=== PATIENT | male | born 1930 | race Caucasian/White ===

== ENCOUNTER 2018-03-25 03:52 | Emergency (ER) | payer MEDICARE, OTHER ==
--- NOTE | 2018-03-25 04:37 | EDM.PDOC ---
ED HPI GENERAL MEDICAL PROBLEM - General Chief Complaint: Neurological Problem Stated Complaint: dizziness Time Seen by Provider: 03/25/18 04:34 - History of Present Illness INITIAL COMMENTS - FREE TEXT/NARRATIVE: Tucker is an 87 year old male with PMH of CAD, hypertension, hyperlipidemia, type II DM, who presents to the ED with c/o dizziness described as spinning sensation. He reports that yesterday evening around 10 pm he noticed he was off balance due to spinning. He reports he then woke up at 2 am and was spinning so bad he could hardly walk. He reports he almost fell over. He then reports at 4 am he was unable to get OOB due to the dizziness, so he called EMS. He denies any history of vertigo or similiar issues. He denies any neurological deficit. He is alert and oriented. He reports when he is sitting up he feels better. He reports that when he lies down, the dizziness returns. He denies any symptoms outside of the vertigo. He denies any recent URI or illness. Denies any CP, SOB , fever, chills, tinnitis, N/V/D. Does report that he has been seeing Dr. Holcomb (Chiropractor) for cervical osteoarthritis. He does report cervical manipulation 6-7 times over the last few months. 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: Reports: EKG - Related Data Allergies Allergy/AdvReac Type Severity Reaction Status Date / Time No Known Allergies Allergy Verified 03/25/18 04:36 Home Meds: Home Meds Levothyroxine [Synthroid] 50 mcg PO ACBRK 09/07/14 [History] Omeprazole [Prilosec] 20 mg PO DAILY 09/07/14 [History] Aspirin [Ecotrin] 325 mg PO WITHBREAKFAST #30 tab.ec 06/20/15 [Rx] Lisinopril [Prinivil] 10 mg PO DAILY #30 tablet 06/20/15 [Rx] Magnesium 500 mg PO DAILY 12/19/15 [History] Insulin NPH Hum/Reg Insulin Hm [Novolin 70-30 100 Unit/ml Vial] 60 units SQ BID 04/26/16 [History] Metoprolol Tartrate [Lopressor] 50 mg PO BID 04/26/16 [History] Adalimumab [Humira] 40 mg SQ ASDIRECTED 03/25/18 [History] Meclizine [Antivert] 25 mg PO Q6H PRN #30 tab 03/25/18 [Rx] Past Medical History HEENT History: Reports: Hard of Hearing, Impaired Vision Cardiovascular History: Reports: Heart Failure, High Cholesterol, Hypertension, [place] Respiratory History: Reports: Other (See Below) Other Respiratory History: bronchiolitis Gastrointestinal History: Reports: GERD Genitourinary History: Reports: Other (See Below) Other Genitourinary History: nocturia Musculoskeletal History: Reports: Arthritis, Gout, Other (See Below) Other Musculoskeletal History: lumbar spinal stenosis Neurological History: Reports: Other (See Below) Other Neuro History: paresthesia Psychiatric History: Reports: Depression Endocrine/Metabolic History: Reports: Diabetes, Type II, Hypothyroidism Dermatologic History: Reports: Psoriasis Other Dermatologic History: actinic keratosis - Past Surgical History Cardiovascular Surgical History: Reports: Coronary Artery Bypass GI Surgical History: Reports: Colonoscopy Social & Family History - Tobacco Use Smoking Status *Q: Never Smoker - Caffeine Use Caffeine Use: Reports: Coffee - Recreational Drug Use Recreational Drug Use: No ED ROS GENERAL - Review of Systems Review Of Systems: ROS reveals no pertinent complaints other than HPI. ED EXAM, NEURO - Physical Exam Exam: See Below Exam Limited By: No Limitations General Appearance: Alert, WD/WN, No Apparent Distress Eye Exam: Bilateral Eye: EOMI, Normal Fundi, Normal Inspection, PERRL Ears: Normal External Exam, Normal Canal, Hearing Grossly Normal, Normal TMs Nose: Normal Inspection, Normal Mucosa, No Blood Throat/Mouth: Normal Inspection, Normal Lips, Normal Teeth, Normal Gums, Normal Oropharynx, Normal Voice, No Airway Compromise Head Exam: Atraumatic, Normocephalic Neck: Normal Inspection, Supple, Non-Tender, Full Range of Motion Respiratory/Chest: No Respiratory Distress, Lungs Clear, Normal Breath Sounds, No Accessory Muscle Use, Chest Non-Tender Cardiovascular: Normal Peripheral Pulses, Regular Rate, Rhythm, No Edema, No Gallop, No JVD, No Murmur, No Rub GI/Abdominal: Normal Bowel Sounds, Soft, Non-Tender, No Organomegaly, No Distention, No Abnormal Bruit, No Mass Neurological: Alert, Normal Mood/Affect, Normal Dorsiflexion, CN II-XII Intact, Normal Plantar Flexion, Normal Gait, Normal Reflexes, No Motor/Sensory Deficits , Oriented x 3 Back Exam: Normal Inspection, Full Range of Motion, NT Extremities: Normal Inspection, Normal Range of Motion, Non-Tender, No Pedal Edema, Normal Capillary Refill Psychiatric: Normal Affect, Normal Mood Skin Exam: Warm, Dry, Intact, Normal Color, No Rash EKG INTERPRETATION Rhythm: NSR QRS: RBBB Course - Vital Signs Last Recorded V/S: Last Vital Signs Temp 97.4 F 03/25/18 08:00 Pulse 72 03/25/18 08:00 Resp 20 03/25/18 08:00 BP 155/68 H 03/25/18 08:00 Pulse Ox 95 03/25/18 08:00 - Orders/Labs/Meds Labs: Laboratory Tests 03/25/18 03/25/18 03/25/18 Range/Units 04:04 04:04 04:21 WBC 8.2 (5.0-10.0) 10^3/uL RBC 5.58 (4.50-6.00) 10^6/uL Hgb 15.9 (14.0-18.0) g/dL Hct 50.1 (40.0-54.0) % MCV 89.8 (82.0-94.0) fL MCH 28.5 (27.0-32.0) pg MCHC 31.7 L (33.0-38.0) g/dL RDW Coeff of Mate[place] 13.7 (11.0-15.0) % Plt Count 163 (150-400) 10^3/uL Neut % (Auto) 67.7 (35-85) % Lymph % (Auto) 18.9 (10-55) % [place] % (Auto) 10.3 (0-16) % Eos % (Auto) 2.9 (0-5) % Baso % (Auto) 0.2 (0-3) % Neut # (Auto) 5.53 (1.80-7.00) 10^3/uL Lymph # (Auto) 1.55 (1.00-4.80) 10^3/uL [place] # (Auto) 0.84 H (0.00-0.80) 10^3/uL Eos # (Auto) 0.24 (0.00-0.45) 10^3/uL Baso # (Auto) 0.02 10^3/uL Sodium 135 L (136-145) mEq/L Potassium 4.2 (3.5-5.0) mEq/L Chloride 101 (98-106) mEq/L Carbon Dioxide 35 H (21-32) mmol/L BUN 31 H (7-18) mg/dL Creatinine 1.3 (0.7-1.3) mg/dL Est Cr Clr Drug Dosing 38.73 mL/min Estimated GFR (MDRD) 52 L (>=60) mL/min Glucose 137 H (75-99) mg/dL Calcium 9.0 (8.4-10.1) mg/dL Creatine Kinase 156 (35-232) U/L Troponin I < 0.017 (0.00-0.06) ng/mL C-Reactive Protein 0.8 (0.2-0.8) mg/dL Urine Color Yellow (YELLOW) Urine Appearance Clear (CLEAR) Urine pH 5.5 (4.5-8.0) Ur Specific [place] 1.020 (1.003-1.020) Urine Protein 30 H (NEGATIVE) mg/dL Urine Glucose (UA) Negative (NEGATIVE) mg/dL Urine Ketones Negative (NEGATIVE) mg/dL Urine Occult Blood Trace-lysed H (NEGATIVE) Urine Nitrite Negative (NEGATIVE) Urine Bilirubin Negative (NEGATIVE) Urine Urobilinogen 0.2 (0.2-1.0) EU/dL Ur Leukocyte Esterase Negative (NEGATIVE) Urine RBC Not seen (0-5) /HPF Urine WBC Not seen (0-5) /HPF Meds: Medications Discontinued Medications Generic Name Dose Route Start Last Admin Trade Name Freq PRN Reason Stop Dose Admin Meclizine HCl 25 mg 03/25/18 04:44 03/25/18 04:45 Antivert PO 03/25/18 04:45 25 mg ONETIME ONE Administration - Re-Assessments/Exams Free Text/Narrative Re-Assessment/Exam: 03/25/18 05:01 Discussed exam and laboratory findings with patient and son. Labs all stable. Exam indicates BPPV. We will keep him in extended ED and reexamine in am. 03/25/18 10:00 Patient reports he is feeling much better. He reports he was able to lie down without any dizziness. He is up ambulatory and is steady on feet. He does report he has a walker at home if needed. He feels he is stable for discharge. Departure - Departure Time of Disposition: 10:03 Disposition: Home, Self-Care 01 Condition: Good Clinical Impression: BPPV (benign paroxysmal positional vertigo) Qualifiers: Laterality: unspecified laterality Qualified Code(s): H81.10 - Benign paroxysmal vertigo, unspecified ear - Discharge Information *PRESCRIPTION DRUG MONITORING PROGRAM REVIEWED*: Not Applicable *COPY OF PRESCRIPTION DRUG MONITORING REPORT IN PATIENT ANA: Not Applicable Prescriptions: Meclizine [Antivert] 25 mg PO Q6H PRN #30 tab PRN Reason: Dizziness Instructions: Benign Positional Vertigo Referrals: Kusum Pierson CHIEF EMBALMER [Emergency Provider] - Forms: ED Department Discharge Additional Instructions: 1) Meclizine every 6 hours as needed for dizziness 2) Push fluids 3) Avoid sudden neck movements and position changes 4) No driving while dizzy/unsteady 5) Use walker as needed for unsteadiness 6) Follow up with PT on Tuesday. Appointment will need to be scheduled Tuesday. Bring referral form. 7) Follow up with Kusum Pierson DNP TuesdayMarch 29 at 10:30 am for ER follow up
[2018-03-25] MEDS ORDERED: Meclizine 12.5 MG Tab PO ONE (04:44)
[2018-03-25 04:49] LABS: CHLORIDE,CL 101 mEq/L (98-106); SODIUM,NA 135 mEq/L (136-145)
[2018-03-25 09:01] VITALS: BP 155/68
== END 2018-03-25 10:20 | disposition home or self-care (01) ==
LOC: CC.ED 03:52
DX: H81.10 Benign paroxysmal vertigo, unspecified ear (principal); I11.0 Hypertensive heart disease with heart failure; I50.9 Heart failure, unspecified; I25.2 Old myocardial infarction; K21.9 Gastro-esophageal reflux disease without esophagitis; E03.9 Hypothyroidism, unspecified; E11.9 Type 2 diabetes mellitus without complications; Z79.899 Other long term (current) drug therapy; Z79.82 Long term (current) use of aspirin
CPT/HCPCS: 36415; 80048; 81001; 82550; 84484; 85025; 86140; 93005; 99284; A9270-GY

== ENCOUNTER 2019-09-14 17:33 | Inpatient (IN) | payer MEDICARE, OTHER ==
[2019-09-14 18:16] LABS: CHLORIDE,CL 99 mEq/L (98-106); SODIUM,NA 137 mEq/L (136-145)
[2019-09-14] MEDS ORDERED: Iopamidol 755 Mg/ML 100 ML Bottle IVPUSH ONE (18:52)
[2019-09-14] MEDS ORDERED: Sodium Chloride 0.9% 500 ML IV ONE ×2 (19:38→19:45)
[2019-09-14] MEDS ORDERED: Sodium Chloride 0.9% 500 ML ONE (19:45)
[2019-09-14] MEDS ORDERED: metroNIDAZOLE/Normal Saline 500 MG in Premix Bag 1 BAG IV SCH (22:00)
[2019-09-14] MEDS ORDERED: Acetaminophen 325 MG Tab PO PRN (22:10)
[2019-09-14] MEDS ORDERED: Morphine 2 MG/ML Syringe IVPUSH PRN (22:10)
[2019-09-14] MEDS ORDERED: Ondansetron 4 MG/2 ML SDV IV PRN (22:10)
[2019-09-14] MEDS ORDERED: Insulin NPH HUM/REG Insulin HM 100 UNIT/ML 3 ML Vial SQ PRN (22:10)
[2019-09-14] MEDS ORDERED: Ibuprofen 200 MG Tab PO PRN (22:10)
[2019-09-14] MEDS: Enoxaparin 40 MG/0.4 ML Syringe SUBCUT SCH (22:33)
[2019-09-14] MEDS: Levofloxacin/Dextrose 5%-Water 750 MG in Premix Bag 1 BAG IV SCH (23:19)
[2019-09-15] MEDS: Levothyroxine 50 MCG Tab PO SCH (06:15)
[2019-09-15] MEDS: Pantoprazole 40 MG Tab.CR PO SCH (06:15)
[2019-09-15] MEDS: metroNIDAZOLE/Normal Saline 500 MG in Premix Bag 1 BAG IV SCH ×3 (07:29→23:54)
[2019-09-15] MEDS: Lisinopril 20 MG Tab PO SCH (07:30)
[2019-09-15] MEDS: Allopurinol 100 MG Tab PO SCH (07:30)
[2019-09-15] MEDS: Aspirin 81 MG Tab.EC PO SCH (07:30)
[2019-09-15] MEDS: Metoprolol Tartrate 50 MG Tab PO SCH ×2 (07:31→20:00)
[2019-09-15 07:57] LABS: CHLORIDE,CL 101 mEq/L (98-106); SODIUM,NA 138 mEq/L (136-145)
--- NOTE | 2019-09-15 16:04 | PCM.PN ---
- General Info Date of Service: 09/15/19 Functional Status: Reports: Pain Controlled, Tolerating Diet (clear liquids), Ambulating - Review of Systems General: Reports: No Symptoms. Denies: Fever HEENT: Reports: No Symptoms Pulmonary: Reports: No Symptoms Cardiovascular: Reports: No Symptoms Gastrointestinal: Reports: Abdominal Pain (mildly improved since yesterday), Nausea. Denies: Vomiting Genitourinary: Reports: No Symptoms Musculoskeletal: Reports: No Symptoms Skin: Reports: No Symptoms Neurological: Reports: No Symptoms Psychiatric: Reports: No Symptoms - Patient Data Vitals - Most Recent: Last Vital Signs Temp 98.8 F 09/15/19 12:00 Pulse 74 09/15/19 12:00 Resp 20 09/15/19 12:00 BP 124/64 09/15/19 12:00 Pulse Ox 95 09/15/19 12:00 Weight - Most Recent: 197 lb I&O - Last 24 Hours: Intake & Output 09/15/19 09/15/19 09/15/19 06:59 14:59 22:59 Intake Total 100 Balance 100 Lab Results Last 24 Hours: Laboratory Results - last 24 hr 09/14/19 09/14/19 09/14/19 Range/Units 17:49 17:49 17:49 WBC 12.5 H (5.0-10.0) 10^3/uL RBC 5.27 (4.50-6.00) 10^6/uL Hgb 15.1 (14.0-18.0) g/dL Hct 47.2 (40.0-54.0) % MCV 89.6 (82.0-94.0) fL MCH 28.7 (27.0-32.0) pg MCHC 32.0 L (33.0-38.0) g/dL RDW Coeff of Mateo 13.4 (11.0-15.0) % Plt Count 198 (150-400) 10^3/uL Neut % (Auto) 78.7 (35-85) % Lymph % (Auto) 10.7 (10-55) % [place] % (Auto) 8.6 (0-16) % Eos % (Auto) 1.8 (0-5) % Baso % (Auto) 0.2 (0-3) % Neut # (Auto) 9.86 H (1.80-7.00) 10^3/uL Lymph # (Auto) 1.34 (1.00-4.80) 10^3/uL [place] # (Auto) 1.08 H (0.00-0.80) 10^3/uL Eos # (Auto) 0.22 (0.00-0.45) 10^3/uL Baso # (Auto) 0.02 10^3/uL Sodium 137 (136-145) mEq/L Potassium 4.8 (3.5-5.0) mEq/L Chloride 99 (98-106) mEq/L Carbon Dioxide 31 (21-32) mmol/L BUN 23 H (7-18) mg/dL Creatinine 1.0 (0.7-1.3) mg/dL Est Cr Clr Drug Dosing TNP Estimated GFR (MDRD) > 60 (>=60) mL/min Glucose 171 H D (75-99) mg/dL Calcium 9.6 (8.4-10.1) mg/dL Total Bilirubin 0.4 (0.0-1.0) mg/dL AST 21 (15-37) U/L ALT 20 (12-78) U/L Alkaline Phosphatase 92 (46-116) U/L C-Reactive Protein (0.2-0.8) mg/dL Total Protein 7.7 (6.4-8.2) g/dL Albumin 3.4 (3.4-5.0) g/dL Amylase 22 L (25-115) U/L Lipase 91 (73-393) U/L Urine Color Yellow (YELLOW) Urine Appearance Clear (CLEAR) Urine pH 5.5 (4.5-8.0) Ur Specific [place] 1.020 (1.003-1.020) Urine Protein 30 H (NEGATIVE) mg/dL Urine Glucose (UA) Negative (NEGATIVE) mg/dL Urine Ketones Negative (NEGATIVE) mg/dL Urine Occult Blood Trace-lysed H (NEGATIVE) Urine Nitrite Negative (NEGATIVE) Urine Bilirubin Negative (NEGATIVE) Urine Urobilinogen 1.0 (0.2-1.0) EU/dL Ur Leukocyte Esterase Negative (NEGATIVE) Urine RBC 0-5 (0-5) /HPF Urine WBC Not seen (0-5) /HPF Ur Squamous Epith Cells Not seen (NOT SEEN) /HPF Urine Bacteria Not seen (NOT SEEN) /HPF Hyaline Casts Rare (NOT SEEN) /LPF Urine Mucus Not seen (NOT SEEN) /HPF 09/15/19 09/15/19 Range/Units 07:20 07:20 WBC 7.7 (5.0-10.0) 10^3/uL RBC 4.87 (4.50-6.00) 10^6/uL Hgb 13.9 L (14.0-18.0) g/dL Hct 43.4 (40.0-54.0) % MCV 89.1 (82.0-94.0) fL MCH 28.5 (27.0-32.0) pg MCHC 32.0 L (33.0-38.0) g/dL RDW Coeff of Mateo 13.5 (11.0-15.0) % Plt Count 176 (150-400) 10^3/uL Neut % (Auto) 74.3 (35-85) % Lymph % (Auto) 12.1 (10-55) % [place] % (Auto) 10.8 (0-16) % Eos % (Auto) 2.7 (0-5) % Baso % (Auto) 0.1 (0-3) % Neut # (Auto) 5.73 (1.80-7.00) 10^3/uL Lymph # (Auto) 0.93 L (1.00-4.80) 10^3/uL [place] # (Auto) 0.83 H (0.00-0.80) 10^3/uL Eos # (Auto) 0.21 (0.00-0.45) 10^3/uL Baso # (Auto) 0.01 10^3/uL Sodium 138 (136-145) mEq/L Potassium 4.3 (3.5-5.0) mEq/L Chloride 101 (98-106) mEq/L Carbon Dioxide 29 (21-32) mmol/L BUN 16 (7-18) mg/dL Creatinine 0.9 (0.7-1.3) mg/dL Est Cr Clr Drug Dosing 52.02 Estimated GFR (MDRD) > 60 (>=60) mL/min Glucose 131 H (75-99) mg/dL Calcium 8.9 (8.4-10.1) mg/dL Total Bilirubin (0.0-1.0) mg/dL AST (15-37) U/L ALT (12-78) U/L Alkaline Phosphatase (46-116) U/L C-Reactive Protein 5.7 H (0.2-0.8) mg/dL Total Protein (6.4-8.2) g/dL Albumin (3.4-5.0) g/dL Amylase (25-115) U/L Lipase (73-393) U/L Urine Color (YELLOW) Urine Appearance (CLEAR) Urine pH (4.5-8.0) Ur Specific [place] (1.003-1.020) Urine Protein (NEGATIVE) mg/dL Urine Glucose (UA) (NEGATIVE) mg/dL Urine Ketones (NEGATIVE) mg/dL Urine Occult Blood (NEGATIVE) Urine Nitrite (NEGATIVE) Urine Bilirubin (NEGATIVE) Urine Urobilinogen (0.2-1.0) EU/dL Ur Leukocyte Esterase (NEGATIVE) Urine RBC (0-5) /HPF Urine WBC (0-5) /HPF Ur Squamous Epith Cells (NOT SEEN) /HPF Urine Bacteria (NOT SEEN) /HPF Hyaline Casts (NOT SEEN) /LPF Urine Mucus (NOT SEEN) /HPF Med Orders - Current: Current Medications Acetaminophen (Tylenol) 650 mg PO Q4H PRN PRN Reason: Pain (Mild 1-3)/fever Allopurinol (Zyloprim) 100 mg PO DAILY [facility] Last Admin: 09/15/19 07:30 Dose: 100 mg Aspirin (Halfprin) 81 mg PO DAILY [facility] Last Admin: 09/15/19 07:30 Dose: 81 mg Enoxaparin Sodium (Lovenox) 40 mg SUBCUT Q24H [facility] Last Admin: 09/14/19 22:33 Dose: 40 mg Levofloxacin/Dextrose 750 mg/ (Premix) 150 mls @ 100 mls/hr IV Q24H [facility] Last Admin: 09/14/19 23:19 Dose: 100 mls/hr Metronidazole 500 mg/ Premix 100 mls @ 100 mls/hr IV Q8H [facility] Last Admin: 09/15/19 15:47 Dose: 100 mls/hr Ibuprofen (Motrin) 600 mg PO Q6H PRN PRN Reason: Pain (mild 1-3) Insulin NPH Beef/Pork (Humulin 70-30) 8 - 20 unit SQ BID PRN PRN Reason: Blood Glucose Levothyroxine Sodium (Synthroid) 50 mcg PO ACBRK [facility] Last Admin: 09/15/19 06:15 Dose: 50 mcg Lisinopril (Prinivil) 20 mg PO DAILY [facility] Last Admin: 09/15/19 07:30 Dose: 20 mg Metoprolol Tartrate (Lopressor) 50 mg PO BID [facility] Last Admin: 09/15/19 07:31 Dose: 50 mg Morphine Sulfate (Morphine) 2 mg IVPUSH Q2H PRN PRN Reason: Pain (severe 7-10) Ondansetron HCl (Zofran) 4 mg IV Q6H PRN PRN Reason: Nausea/Vomiting Pantoprazole Sodium (Protonix) 40 mg PO ACBREAKFAST [facility] Last Admin: 09/15/19 06:15 Dose: 40 mg Discontinued Medications Sodium Chloride (Normal Saline) Confirm Administered Dose 500 mls @ as directed .ROUTE .STK-MED ONE Stop: 09/14/19 19:46 Last Admin: 09/14/19 20:02 Dose: Not Given Metronidazole 500 mg/ Premix 100 mls @ 100 mls/hr IV Q8H [facility] Last Admin: 09/14/19 22:30 Dose: 100 mls/hr Sodium Chloride (Normal Saline) 500 mls @ 999 mls/hr IV ONETIME ONE Stop: 09/14/19 20:08 Last Admin: 09/14/19 19:38 Dose: 999 mls/hr Iopamidol (Isovue-370 (76%)) 100 ml IVPUSH ONETIME ONE Stop: 09/14/19 18:53 Last Admin: 09/14/19 19:09 Dose: 100 ml - Exam General: Alert, Oriented, Cooperative Lungs: Clear to Auscultation, Normal Respiratory Effort Cardiovascular: Regular Rate, Regular Rhythm GI/Abdominal Exam: Normal Bowel Sounds, Soft, Distended, Tender (RLQ, LLQ.) Back Exam: Normal Inspection, Full Range of Motion Extremities: Normal Inspection, Normal Range of Motion, Non-Tender, No Pedal Edema, Normal Capillary Refill Peripheral Pulses: 2+: Radial (L), Radial (R), Posterior Tibial (L), Posterior Tibial (R) Skin: Warm, Dry, Intact Neurological: No New Focal Deficit, Normal Gait, Normal Speech Psy/Mental Status: Alert, Normal Affect, Normal Mood Sepsis Event Note - Evaluation Sepsis Screening Result: No Definite Risk - Focused Exam Vital Signs: Vital Signs Temp Pulse Pulse Resp BP BP Pulse Ox 09/15/19 12:00 98.8 F 74 20 124/64 95 09/15/19 07:31 88 122/94 H 09/15/19 07:30 122/94 H 09/15/19 07:29 97 F 88 16 122/94 H 96 Date Exam was Performed: 09/16/19 Time Exam was Performed: 23:57 - Problem List Review Problem List Initiated/Reviewed/Updated: Yes - My Orders Last 24 Hours: My Active Orders 09/14/19 21:53 Resuscitation Status Routine 09/14/19 22:00 Enoxaparin [Lovenox] 40 mg SUBCUT Q24H 09/14/19 22:10 Patient Status [ADT] Routine Ambulate [RC] .PRN Antiembolic Devices [RC] 1000,2200 Notify Provider Vital Signs [RC] .PRN Oxygen Therapy [RC] .PRN Up With Assistance [RC] .PRN Vital Signs [RC] 0000,0400,0800,1200,1600,2000 Acetaminophen [Tylenol] 650 mg PO Q4H PRN Ibuprofen [Motrin] 600 mg PO Q6H PRN Insulin NPH Hum/Reg Insulin Hm [Humulin 70-30] 8 - 20 unit SQ BID PRN Morphine 2 mg IVPUSH Q2H PRN Ondansetron [Zofran] 4 mg IV Q6H PRN Antiembolic Hose [OM.PC] Per Unit Routine 09/14/19 23:00 Levofloxacin/Dextrose 5%-Water [Levaquin in D5W 750 MG/150 ML] 750 mg Premix Bag 1 bag IV Q24H 09/15/19 07:00 Levothyroxine [Synthroid] 50 mcg PO ACBRK Pantoprazole [ProTONIX] 40 mg PO ACBREAKFAST 09/15/19 08:00 Aspirin [Halfprin] 81 mg PO DAILY Metoprolol Tartrate [Lopressor] 50 mg PO BID allopurinoL [Zyloprim] 100 mg PO DAILY lisinopriL [Prinivil] 20 mg PO DAILY metroNIDAZOLE/Normal Saline [Flagyl 500 MG in NS 100 ML] 500 mg Premix Bag 1 bag IV Q8H 09/16/19 05:00 BASIC METABOLIC PANEL,BMP [CHEM] DAILY C-REACTIVE PROTEIN [CHEM] DAILY CBC WITH AUTO DIFF [HEME] DAILY 09/17/19 05:00 BASIC METABOLIC PANEL,BMP [CHEM] DAILY C-REACTIVE PROTEIN [CHEM] DAILY CBC WITH AUTO DIFF [HEME] DAILY - Plan Plan:: Patient was admitted yesterday for diverticulitis. Patient yesterday had elevated wbc, abdominal pain, and complained of fever. Today patient reports he still has abdominal pain, but it has improved some. Patient reports he still feels distended. Patient today has been afebrile. His wbc has decreased. Will continue with admit and IV abx and observe in hopes he does not develop a fistula. Will keep clear liquids today.
[2019-09-15] MEDS: Nystatin Topical Powder 15 GM Bottle TOP SCH (20:00)
[2019-09-15] MEDS: Enoxaparin 40 MG/0.4 ML Syringe SUBCUT SCH (22:12)
[2019-09-15] MEDS: Levofloxacin/Dextrose 5%-Water 750 MG in Premix Bag 1 BAG IV SCH (22:12)
[2019-09-16] MEDS: Pantoprazole 40 MG Tab.CR PO SCH (06:22)
[2019-09-16] MEDS: Levothyroxine 50 MCG Tab PO SCH (06:22)
[2019-09-16] MEDS: Lisinopril 20 MG Tab PO SCH (07:58)
[2019-09-16] MEDS: Aspirin 81 MG Tab.EC PO SCH (07:58)
[2019-09-16] MEDS: Metoprolol Tartrate 50 MG Tab PO SCH ×2 (07:58→19:21)
[2019-09-16 07:59] LABS: CHLORIDE,CL 102 mEq/L (98-106); SODIUM,NA 139 mEq/L (136-145)
[2019-09-16] MEDS: metroNIDAZOLE/Normal Saline 500 MG in Premix Bag 1 BAG IV SCH ×2 (07:59→15:43)
[2019-09-16] MEDS: Allopurinol 100 MG Tab PO SCH (07:59)
[2019-09-16] MEDS: Nystatin Topical Powder 15 GM Bottle TOP SCH ×2 (08:03→19:23)
[2019-09-16] MEDS ORDERED: Gabapentin 100 MG Cap PO PRN (15:46)
--- NOTE | 2019-09-16 15:49 | PCM.PN ---
- General Info Date of Service: 09/16/19 Functional Status: Reports: Pain Controlled, Tolerating Diet (advanced today), Ambulating - Review of Systems General: Reports: No Symptoms. Denies: Fever HEENT: Reports: No Symptoms Pulmonary: Reports: No Symptoms Cardiovascular: Reports: No Symptoms Gastrointestinal: Reports: Abdominal Pain (better than yesterday per patient). Denies: Decreased Appetite, Nausea, Vomiting Genitourinary: Reports: No Symptoms Musculoskeletal: Reports: No Symptoms Skin: Reports: Rash (under panus) Neurological: Reports: No Symptoms Psychiatric: Reports: No Symptoms - Patient Data Vitals - Most Recent: Last Vital Signs Temp 98.4 F 09/16/19 11:51 Pulse 68 09/16/19 11:51 Resp 20 09/16/19 11:51 BP 135/62 09/16/19 11:51 Pulse Ox 96 09/16/19 11:51 Weight - Most Recent: 197 lb I&O - Last 24 Hours: Intake & Output 09/16/19 09/16/19 09/16/19 06:59 14:59 22:59 Intake Total 100 100 Balance 100 100 Lab Results Last 24 Hours: Laboratory Results - last 24 hr 09/16/19 09/16/19 Range/Units 07:38 07:38 WBC 6.7 (5.0-10.0) 10^3/uL RBC 4.84 (4.50-6.00) 10^6/uL Hgb 13.8 L (14.0-18.0) g/dL Hct 43.5 (40.0-54.0) % MCV 89.9 (82.0-94.0) fL MCH 28.5 (27.0-32.0) pg MCHC 31.7 L (33.0-38.0) g/dL RDW Coeff of Mateo 13.5 (11.0-15.0) % Plt Count 171 (150-400) 10^3/uL Neut % (Auto) 72.0 (35-85) % Lymph % (Auto) 13.6 (10-55) % [place] % (Auto) 10.0 (0-16) % Eos % (Auto) 4.0 (0-5) % Baso % (Auto) 0.4 (0-3) % Neut # (Auto) 4.82 (1.80-7.00) 10^3/uL Lymph # (Auto) 0.91 L (1.00-4.80) 10^3/uL [place] # (Auto) 0.67 (0.00-0.80) 10^3/uL Eos # (Auto) 0.27 (0.00-0.45) 10^3/uL Baso # (Auto) 0.03 10^3/uL Sodium 139 (136-145) mEq/L Potassium 4.2 (3.5-5.0) mEq/L Chloride 102 (98-106) mEq/L Carbon Dioxide 29 (21-32) mmol/L BUN 13 (7-18) mg/dL Creatinine 0.9 (0.7-1.3) mg/dL Est Cr Clr Drug Dosing 52.02 mL/min Estimated GFR (MDRD) > 60 (>=60) mL/min Glucose 169 H D (75-99) mg/dL Calcium 8.7 (8.4-10.1) mg/dL C-Reactive Protein 4.2 H (0.2-0.8) mg/dL Med Orders - Current: Current Medications Acetaminophen (Tylenol) 650 mg PO Q4H PRN PRN Reason: Pain (Mild 1-3)/fever Allopurinol (Zyloprim) 100 mg PO DAILY [facility] Last Admin: 09/16/19 07:59 Dose: 100 mg Aspirin (Halfprin) 81 mg PO DAILY [facility] Last Admin: 09/16/19 07:58 Dose: 81 mg Enoxaparin Sodium (Lovenox) 40 mg SUBCUT Q24H [facility] Last Admin: 09/15/19 22:12 Dose: 40 mg Levofloxacin/Dextrose 750 mg/ (Premix) 150 mls @ 100 mls/hr IV Q24H [facility] Last Admin: 09/15/19 22:12 Dose: 100 mls/hr Metronidazole 500 mg/ Premix 100 mls @ 100 mls/hr IV Q8H [facility] Last Admin: 09/16/19 15:43 Dose: 100 mls/hr Ibuprofen (Motrin) 600 mg PO Q6H PRN PRN Reason: Pain (mild 1-3) Insulin NPH Beef/Pork (Humulin 70-30) 8 - 20 unit SQ BID PRN PRN Reason: Blood Glucose Levothyroxine Sodium (Synthroid) 50 mcg PO ACBRK [facility] Last Admin: 09/16/19 06:22 Dose: 50 mcg Lisinopril (Prinivil) 20 mg PO DAILY [facility] Last Admin: 09/16/19 07:58 Dose: 20 mg Metoprolol Tartrate (Lopressor) 50 mg PO BID [facility] Last Admin: 09/16/19 07:58 Dose: 50 mg Morphine Sulfate (Morphine) 2 mg IVPUSH Q2H PRN PRN Reason: Pain (severe 7-10) Nystatin (Nystop) 1 gm TOP BID [facility] Last Admin: 09/16/19 08:03 Dose: 1 applic Ondansetron HCl (Zofran) 4 mg IV Q6H PRN PRN Reason: Nausea/Vomiting Pantoprazole Sodium (Protonix) 40 mg PO ACBREAKFAST [facility] Last Admin: 09/16/19 06:22 Dose: 40 mg Discontinued Medications Sodium Chloride (Normal Saline) Confirm Administered Dose 500 mls @ as directed .ROUTE .STK-MED ONE Stop: 09/14/19 19:46 Last Admin: 09/14/19 20:02 Dose: Not Given Metronidazole 500 mg/ Premix 100 mls @ 100 mls/hr IV Q8H [facility] Last Admin: 09/14/19 22:30 Dose: 100 mls/hr Sodium Chloride (Normal Saline) 500 mls @ 999 mls/hr IV ONETIME ONE Stop: 09/14/19 20:08 Last Admin: 09/14/19 19:38 Dose: 999 mls/hr Iopamidol (Isovue-370 (76%)) 100 ml IVPUSH ONETIME ONE Stop: 09/14/19 18:53 Last Admin: 09/14/19 19:09 Dose: 100 ml - Exam General: Alert, Oriented, Cooperative, No Acute Distress Lungs: Clear to Auscultation, Normal Respiratory Effort Cardiovascular: Regular Rate, Regular Rhythm GI/Abdominal Exam: Normal Bowel Sounds, Soft, No Organomegaly, No Distention, No Abnormal Bruit, No Mass, Pelvis Stable, Tender (RLQ, LLQ, but improved from yesterday.) Back Exam: Normal Inspection, Full Range of Motion Extremities: Normal Inspection, Normal Range of Motion, Non-Tender, No Pedal Edema, Normal Capillary Refill Peripheral Pulses: 2+: Radial (L), Radial (R), Posterior Tibial (L), Posterior Tibial (R) Skin: Warm, Dry, Intact, Rash (under panus, erythema, yeast light. ) Neurological: No New Focal Deficit Psy/Mental Status: Alert, Normal Affect, Normal Mood Sepsis Event Note - Evaluation Sepsis Screening Result: No Definite Risk - Focused Exam Vital Signs: Vital Signs Temp Pulse Pulse Resp BP BP Pulse Ox 09/16/19 11:51 98.4 F 68 20 135/62 96 09/16/19 07:58 79 126/67 09/16/19 07:56 98.3 F 79 18 126/67 95 Date Exam was Performed: 09/16/19 Time Exam was Performed: 23:58 - Problem List Review Problem List Initiated/Reviewed/Updated: Yes - My Orders Last 24 Hours: My Active Orders 09/15/19 20:00 Nystatin [Nystop] 1 gm TOP BID 09/16/19 Lunch Consistent Carbohydrate Diet (Diabetic) [Consistent Carbohydrate Diet] [DIET] 09/17/19 05:00 BASIC METABOLIC PANEL,BMP [CHEM] DAILY C-REACTIVE PROTEIN [CHEM] DAILY CBC WITH AUTO DIFF [HEME] DAILY - Plan Plan:: 09/15/2019 Patient was admitted yesterday for diverticulitis. Patient yesterday had elevated wbc, abdominal pain, and complained of fever. Today patient reports he still has abdominal pain, but it has improved some. Patient reports he still feels distended. Patient today has been afebrile. His wbc has decreased. Will continue with admit and IV abx and observe in hopes he does not develop a fistula. Will keep clear liquids today. 09/16/2019 Patient today reports that his abdominal pain has improved a lot from yesterday. Advanced patient today and he is tolerating well without problems. Patient denies fever. Patient does have a rash under his panus that is yeast. Nystatin powder was ordered yesterday for this. The patient labs are are improved today as well. I plan for this patient to go home either Tuesday or Tuesday.
[2019-09-16] MEDS: Gabapentin 100 MG Cap PO PRN (19:27)
[2019-09-16] MEDS: Enoxaparin 40 MG/0.4 ML Syringe SUBCUT SCH (21:05)
[2019-09-16] MEDS: Levofloxacin/Dextrose 5%-Water 750 MG in Premix Bag 1 BAG IV SCH (23:05)
[2019-09-17] MEDS: metroNIDAZOLE/Normal Saline 500 MG in Premix Bag 1 BAG IV SCH ×3 (00:11→16:03)
[2019-09-17] MEDS: Pantoprazole 40 MG Tab.CR PO SCH (06:40)
[2019-09-17] MEDS: Levothyroxine 50 MCG Tab PO SCH (06:40)
[2019-09-17] MEDS: Gabapentin 100 MG Cap PO PRN ×2 (06:41→14:07)
[2019-09-17] MEDS: Aspirin 81 MG Tab.EC PO SCH (08:10)
[2019-09-17] MEDS: Lisinopril 20 MG Tab PO SCH (08:10)
[2019-09-17] MEDS: Metoprolol Tartrate 50 MG Tab PO SCH (08:10)
[2019-09-17 08:11] VITALS: BP 145/71; PULSE 79
[2019-09-17] MEDS: Allopurinol 100 MG Tab PO SCH (08:11)
[2019-09-17 08:17] LABS: CHLORIDE,CL 102 mEq/L (98-106); SODIUM,NA 141 mEq/L (136-145)
[2019-09-17] MEDS: Nystatin Topical Powder 15 GM Bottle TOP SCH (09:13)
--- NOTE | 2019-09-17 10:58 | PCM.DCSUM1 ---
Discharge Summary - Hospital Course Free Text/Narrative:: Art is an 89 year old male who presented to clinic to see Navdeep Rose for abdominal pain, nausea and weight loss. Had not been tolerating oral intake. Had been taking NSAIDS and not seeing any improvement. Had not felt right for several weeks. No vomiting. Did have bout of diarrhea. Pain has steadily worsened over the last 3 days. Abdomen was tender with palpation in the lower quadrants. WBC elevated at 12.5. Amylase and lipase normal. CT scan of abdomen was done and did show Diverticulitis with fistula risk. Admitted inpatient and started on IV levaquin and flagyl. Diagnosis: Stroke: No Modified Harrison Scale: No Symptoms at All Modified Monique Scale Score: 0 - Discharge Data Discharge Date: 09/17/19 Discharge Disposition: Home, Self-Care Condition: Good - Referral to Home Health Primary Care Physician: Navdeep Rose NP - Patient Summary/Data Complications: none Hospital Course: Patient is feeling better. States only notes abdominal pain with coughing or with palpation of the abdomen. Is afebrile. Tolerating regular diet. Ambulating without difficulty. Labs are improved. WBC 8.5. CRP 2.5. Electrolytes are normal. Blood pressure was high in clinic prior to admit, now improved and normal. Will discharge home on oral Cipro. Follow up in one week for recheck. - Patient Instructions Diet: Usual Diet as Tolerated Activity: As Tolerated - Discharge Plan *PRESCRIPTION DRUG MONITORING PROGRAM REVIEWED*: No *COPY OF PRESCRIPTION DRUG MONITORING REPORT IN PATIENT ANA: No Prescriptions/Med Rec: Ciprofloxacin HCl [Cipro] 500 mg PO BID #20 tablet Nystatin [Nystop] 1 gm TOP BID #1 bottle Home Medications: Home Meds Levothyroxine [Synthroid] 50 mcg PO ACBRK 09/07/14 [History] Omeprazole [Prilosec] 20 mg PO DAILY 09/07/14 [History] Insulin NPH Hum/Reg Insulin Hm [Novolin 70-30 100 Unit/ml Vial] 8 - 20 units SQ BID PRN 04/26/16 [History] Metoprolol Tartrate [Lopressor] 50 mg PO BID 04/26/16 [History] Aspirin [Halfprin] 81 mg PO DAILY 09/14/19 [History] Lisinopril [Prinivil] 20 mg PO DAILY 09/14/19 [History] allopurinoL [Zyloprim] 100 mg DAILY 09/14/19 [History] Gabapentin [Neurontin] 100 - 200 mg PO BID PRN 09/16/19 [History] Ciprofloxacin HCl [Cipro] 500 mg PO BID #20 tablet 09/17/19 [Rx] Nystatin [Nystop] 1 gm TOP BID #1 bottle 09/17/19 [Rx] Referrals: Dory Najera PA [ED Midlevel Provider] - (Follow up with Carla in 10 days ) - Discharge Summary/Plan Comment DC Time >30 min.: No - General Info Date of Service: 09/17/19 Admission Dx/Problem (Free Text: Diverticulitis Functional Status: Reports: Pain Controlled, Tolerating Diet, Ambulating - Review of Systems General: Reports: Weakness, Fatigue, Malaise. Denies: Fever HEENT: Reports: No Symptoms Pulmonary: Denies: Shortness of Breath, Cough Cardiovascular: Reports: Edema. Denies: Chest Pain, Lightheadedness Gastrointestinal: Reports: Abdominal Pain. Denies: Nausea, Vomiting Genitourinary: Reports: No Symptoms Musculoskeletal: Reports: No Symptoms Skin: Reports: No Symptoms Neurological: Reports: No Symptoms - Patient Data Vitals - Most Recent: Last Vital Signs Temp 96.9 F 09/17/19 08:00 Pulse 79 09/17/19 08:10 Resp 18 09/17/19 08:00 BP 145/71 H 09/17/19 08:10 Pulse Ox 95 09/17/19 08:00 Weight - Most Recent: 197 lb I&O - Last 24 hours: Intake & Output 09/16/19 09/17/19 09/17/19 22:59 06:59 14:59 Intake Total 100 100 Balance 100 100 Lab Results - Last 24 hrs: Laboratory Results - last 24 hr 09/17/19 09/17/19 Range/Units 07:00 07:00 WBC 8.5 (5.0-10.0) 10^3/uL RBC 4.98 (4.50-6.00) 10^6/uL Hgb 14.3 (14.0-18.0) g/dL Hct 44.8 (40.0-54.0) % MCV 90.0 (82.0-94.0) fL MCH 28.7 (27.0-32.0) pg MCHC 31.9 L (33.0-38.0) g/dL RDW Coeff of Mateo 13.4 (11.0-15.0) % Plt Count 190 (150-400) 10^3/uL Neut % (Auto) 74.0 (35-85) % Lymph % (Auto) 12.2 (10-55) % Becker % (Auto) 10.1 (0-16) % Eos % (Auto) 3.5 (0-5) % Baso % (Auto) 0.2 (0-3) % Neut # (Auto) 6.28 (1.80-7.00) 10^3/uL Lymph # (Auto) 1.04 (1.00-4.80) 10^3/uL Becker # (Auto) 0.86 H (0.00-0.80) 10^3/uL Eos # (Auto) 0.30 (0.00-0.45) 10^3/uL Baso # (Auto) 0.02 10^3/uL Sodium 141 (136-145) mEq/L Potassium 4.3 (3.5-5.0) mEq/L Chloride 102 (98-106) mEq/L Carbon Dioxide 32 (21-32) mmol/L BUN 16 (7-18) mg/dL Creatinine 1.0 (0.7-1.3) mg/dL Est Cr Clr Drug Dosing 46.82 mL/min Estimated GFR (MDRD) > 60 (>=60) mL/min Glucose 133 H (75-99) mg/dL Calcium 8.4 (8.4-10.1) mg/dL C-Reactive Protein 2.5 H (0.2-0.8) mg/dL Med Orders - Current: Current Medications Acetaminophen (Tylenol) 650 mg PO Q4H PRN PRN Reason: Pain (Mild 1-3)/fever Allopurinol (Zyloprim) 100 mg PO DAILY [facility] Last Admin: 09/17/19 08:11 Dose: 100 mg Aspirin (Halfprin) 81 mg PO DAILY [facility] Last Admin: 09/17/19 08:10 Dose: 81 mg Enoxaparin Sodium (Lovenox) 40 mg SUBCUT Q24H [facility] Last Admin: 09/16/19 21:05 Dose: 40 mg Gabapentin (Neurontin) 100 - 200 mg PO BID PRN PRN Reason: Pain Last Admin: 09/17/19 06:41 Dose: 100 mg Levofloxacin/Dextrose 750 mg/ (Premix) 150 mls @ 100 mls/hr IV Q24H [facility] Last Admin: 09/16/19 23:05 Dose: 100 mls/hr Metronidazole 500 mg/ Premix 100 mls @ 100 mls/hr IV Q8H [facility] Last Admin: 09/17/19 08:04 Dose: 100 mls/hr Ibuprofen (Motrin) 600 mg PO Q6H PRN PRN Reason: Pain (mild 1-3) Insulin NPH Beef/Pork (Humulin 70-30) 8 - 20 unit SQ BID PRN PRN Reason: Blood Glucose Levothyroxine Sodium (Synthroid) 50 mcg PO ACBRK [facility] Last Admin: 09/17/19 06:40 Dose: 50 mcg Lisinopril (Prinivil) 20 mg PO DAILY [facility] Last Admin: 09/17/19 08:10 Dose: 20 mg Metoprolol Tartrate (Lopressor) 50 mg PO BID [facility] Last Admin: 09/17/19 08:10 Dose: 50 mg Morphine Sulfate (Morphine) 2 mg IVPUSH Q2H PRN PRN Reason: Pain (severe 7-10) Nystatin (Nystop) 1 gm TOP BID [facility] Last Admin: 09/17/19 09:13 Dose: 1 applic Ondansetron HCl (Zofran) 4 mg IV Q6H PRN PRN Reason: Nausea/Vomiting Pantoprazole Sodium (Protonix) 40 mg PO ACBREAKFAST [facility] Last Admin: 09/17/19 06:40 Dose: 40 mg Discontinued Medications Gabapentin (Neurontin) 100 mg PO BID PRN PRN Reason: pain Last Admin: 09/16/19 16:53 Dose: 100 mg Sodium Chloride (Normal Saline) Confirm Administered Dose 500 mls @ as directed .ROUTE .STK-MED ONE Stop: 09/14/19 19:46 Last Admin: 09/14/19 20:02 Dose: Not Given Metronidazole 500 mg/ Premix 100 mls @ 100 mls/hr IV Q8H [facility] Last Admin: 09/14/19 22:30 Dose: 100 mls/hr Sodium Chloride (Normal Saline) 500 mls @ 999 mls/hr IV ONETIME ONE Stop: 09/14/19 20:08 Last Admin: 09/14/19 19:38 Dose: 999 mls/hr Iopamidol (Isovue-370 (76%)) 100 ml IVPUSH ONETIME ONE Stop: 09/14/19 18:53 Last Admin: 09/14/19 19:09 Dose: 100 ml - Exam General: Reports: Alert, Oriented HEENT: Reports: Mucous Membr. Moist/[place] Neck: Reports: Supple Lungs: Reports: Clear to Auscultation, Normal Respiratory Effort Cardiovascular: Reports: Regular Rate, Regular Rhythm GI/Abdominal Exam: Normal Bowel Sounds, Soft, Tender (LLQ) Extremities: Normal Inspection, Pedal Edema (Has 1+ edema in LE) Skin: Reports: Warm, Dry Neurological: Reports: No New Focal Deficit
[2019-09-17] MEDS: Levofloxacin/Dextrose 5%-Water 750 MG in Premix Bag 1 BAG IV SCH (14:01)
== END 2019-09-17 15:48 | disposition home or self-care (01) | DRG 392 ==
LOC: CC.FCMC 17:33 → UNDOADMIN 20:04 → CC.MS 20:04
PROVIDERS: ADMIT Nurse Practitioner; ATTEND Family Medicine
DX: K57.12 Diverticulitis of small intestine without perforation or abscess without bleeding (principal); H91.90 Unspecified hearing loss, unspecified ear; H54.7 Unspecified visual loss; I11.0 Hypertensive heart disease with heart failure; I50.9 Heart failure, unspecified; E78.00 Pure hypercholesterolemia, unspecified; K21.9 Gastro-esophageal reflux disease without esophagitis; M19.90 Unspecified osteoarthritis, unspecified site; M10.9 Gout, unspecified; L57.0 Actinic keratosis; E03.9 Hypothyroidism, unspecified; E11.9 Type 2 diabetes mellitus without complications; M48.061 Spinal stenosis, lumbar region without neurogenic claudication; Z79.82 Long term (current) use of aspirin; I25.2 Old myocardial infarction; Z79.890 Hormone replacement therapy; Z79.899 Other long term (current) drug therapy
CPT/HCPCS: 36415; 74177; 80048; 80053; 81001; 82150; 83690; 85025; 86140; A9270-GY; J1650; J1956; J3490; J7040; Q9967